=== PATIENT | male | born 2000 | race African-American/Black ===

== ENCOUNTER 2022-02-21 20:25 | Emergency (ER) | payer OTHER ==
[~2022-02-21] VITALS: Ht 177.8 cm; Wt 72.7 kg
[2022-02-21] MEDS ORDERED: CEPHALEXIN500 M1 PO (21:44)
[2022-02-21 22:00] VITALS: BP 134/94
== END 2022-02-21 22:00 | disposition home or self-care (01) ==
LOC: ED 20:25
DX: R05.9 Cough, unspecified (principal)
CPT/HCPCS: J0696